=== PATIENT | female | born 1965 | race Hispanic/Latino ===

== ENCOUNTER 2021-11-28 11:57 | Emergency (ER) | payer SELFPAY ==
[~2021-11-28] VITALS: Ht 152.4 cm; Wt 64.0 kg
[2021-11-28] MEDS ORDERED: FAMOTIDINE 20 MG/2 ML VIAL IV STA (12:38)
[2021-11-28] MEDS ORDERED: SODIUM CHLORIDE 0.9% 1000ML 1,000 ML IV STA (12:38)
[2021-11-28] MEDS ORDERED: ONDANSETRON HCL INJ 2MG/ML 2ML 2 MG/ML VIAL IV STA (12:38)
[2021-11-28] MEDS ORDERED: IOPAMIDOL 370 MG/ML 200 ML INFUS..BTL INJ ONE (12:57)
[2021-11-28] MEDS ORDERED: SODIUM CHLORIDE 0.9% 50ML 50 ML ONE (12:57)
[2021-11-28] MEDS ORDERED: ONDANSETRON HCL INJ 2MG/ML 2ML 2 MG/ML VIAL ONE (13:01)
[2021-11-28] MEDS ORDERED: SODIUM CHLORIDE 0.9% 1000ML 1,000 ML ONE (13:01)
[2021-11-28] MEDS ORDERED: FAMOTIDINE 20 MG/2 ML VIAL IV ONE (13:02)
[2021-11-28] MEDS ORDERED: KETOROLAC TROMETHAMINE 30 MG/ML VIAL IV STA (13:17)
[2021-11-28] MEDS ORDERED: KETOROLAC TROMETHAMINE 30 MG/ML VIAL ONE (13:22)
[2021-11-28] MEDS ORDERED: ONDANSETRON ODT4 MG PO (14:15)
[2021-11-28] MEDS ORDERED: ACETAMINOPHEN-1 EAC4 PO (14:15)
[2021-11-28] MEDS ORDERED: CIPRO500 MG PO (14:15)
== END 2021-11-28 14:25 | disposition home or self-care (01) ==
LOC: FSED 12:35
DX: R10.13 Epigastric pain (principal); R51.9 Headache, unspecified
CPT/HCPCS: 74177; 80048; 80076; 81003; 85025; 87400; 96374; 96375; 99284; J1885; J2405; J7030; Q9967; 93005

== ENCOUNTER 2023-05-12 21:19 | Emergency (ER) | payer SELFPAY ==
[~2023-05-12] VITALS: Ht 152.4 cm; Wt 64.0 kg
[~2023-05-12 21:19] MED LIST: ACETAMINOPHEN-1 EAC4 PO; CIPRO500 MG PO; ONDANSETRON ODT4 MG PO
[2023-05-12] MEDS ORDERED: TEARS LUBRICANT15 ML OS (22:00)
[2023-05-12] MEDS ORDERED: PREDNISONE20 MG PO (22:00)
[2023-05-12] MEDS ORDERED: VALACYCLOVIR1000 MG PO (22:00)
[2023-05-12 23:00] VITALS: O2SAT 97
== END 2023-05-12 23:12 | disposition home or self-care (01) ==
LOC: FSED 21:27
DX: G51.0 Bell's palsy (principal); R51.9 Headache, unspecified
CPT/HCPCS: 36415; 70450; 82948; 99283